=== PATIENT | male | born 1960 | race Caucasian/White ===

== ENCOUNTER → 2018-05-11 | Outpatient (REF) ==
[2018-05-11 15:10] LABS: THYROID STIMULATING HORMONE 1.51 uIU/mL (0.465-4.680)
[2018-05-11 16:02] LABS: PSA-TOTAL 1.43 ng/mL (0-4)
== END ==
LOC: ZLAB.WCH 14:22
PROVIDERS: Internal Medicine
DX: Z01.89 Encounter for other specified special examinations (principal)
CPT/HCPCS: G0103